=== PATIENT | male | born 1955 ===

== ENCOUNTER 2022-11-04 05:15 | Day surgery (SDC) | payer OTHER ==
[~2022-11-04] VITALS: Ht 170.2 cm; Wt 92.1 kg
[2022-11-04] MEDS ORDERED: TRAM1TAB98 PO (09:43)
[2022-11-04] MEDS ORDERED: NEURONTIN300 MG PO (09:44)
[2022-11-04] MEDS ORDERED: POLY119PG PO (09:44)
== END 2022-11-04 12:40 | disposition home or self-care (01) ==
LOC: CIR.AMB 05:15
PROVIDERS: ATTEND Surgery
DX: K42.9 Umbilical hernia without obstruction or gangrene (principal); K43.9 Ventral hernia without obstruction or gangrene; Z20.822 Contact with and (suspected) exposure to COVID-19